=== PATIENT | female | born 1970 | race Caucasian/White ===

== ENCOUNTER → 2019-11-26 15:08 | Outpatient (BNVA) | payer OTHER, SELFPAY | PROVIDERS: Family Provider Family Medicine; Visit Provider Nurse Practitioner Family | DX: S99.922A Unspecified injury of left foot, initial encounter (principal); M77.32 Calcaneal spur, left foot; X58.XXXA Exposure to other specified factors, initial encounter | CPT/HCPCS: 73630 ==

== ENCOUNTER 2021-11-16 07:36 | Outpatient (CLI) | payer OTHER, SELFPAY ==
--- NOTE | 2021-11-16 07:49 | MM_ITS ---
WS: [id number] VIEWS: MLO and CC views both breasts. 3D digital tomosynthesis is also included in this exam. Comparison made with prior exam of 02/04/2013, 03/13/2016, 04/24/2019, Findings: There was no sign of mass, architectural distortion or suspicious calcification in either breast. Sc attered fibroglandular densities MM/[id number] Impression: BI-RADS: 2-Benign FOLLOW-UP: 1 Year Follow-up This mammogram was also analyzed by the Computer Aided Detection System R2 Imag e Demo Event Specialist.
== END 2021-11-16 07:37 | disposition home or self-care (01) ==
LOC: RAD 07:38
PROVIDERS: PCP Family Medicine; Visit Provider Family Medicine
DX: Z12.31 Encounter for screening mammogram for malignant neoplasm of breast (principal)
CPT/HCPCS: 77063; 77067

== ENCOUNTER → 2022-05-17 09:15 | Outpatient (BNVA) | payer OTHER, SELFPAY | PROVIDERS: PCP Family Medicine; Visit Provider Nurse Practitioner | DX: J02.9 Acute pharyngitis, unspecified (principal) | CPT/HCPCS: 87071; 87880 ==

== ENCOUNTER 2022-11-22 15:12 | Outpatient (CLI) | payer OTHER, SELFPAY ==
--- NOTE | 2022-11-22 15:24 | MM_ITS ---
WS: [id number] BILATERAL SCREENING DIGITAL TOMOSYNTHESIS MAMMOGRAM WITH CAD HISTORY: SCREENING COMPARISON: 11/16/2021, 04/24/2019 Bilateral CC and MLO views with tomosynthesis and synthetic mammography submitted. Computer aided det ection analyzed. Breast composition: There are scattered areas of fibroglandular density. No suspicious masses, microc alcifications or architectural distortion. MM/[id number] IMPRESSION: BI-RADS: 1-Negative FOLLOW UP: 1 Year Follow-up
== END 2022-11-22 15:13 | disposition home or self-care (01) ==
LOC: RAD 15:15
PROVIDERS: PCP Family Medicine; Visit Provider Family Medicine
DX: Z12.31 Encounter for screening mammogram for malignant neoplasm of breast (principal)
CPT/HCPCS: 77063; 77067

== ENCOUNTER 2024-05-19 08:16 | Outpatient (CLI) | payer SELFPAY ==
[2024-05-19 09:37] LABS: 25 Hydroxy Vitamin D 29 ng/mL (30-100)
== END 2024-05-19 08:17 | disposition home or self-care (01) ==
LOC: LAB 08:18
PROVIDERS: PCP Family Medicine; Visit Provider Dermatology
DX: Z13.9 Encounter for screening, unspecified (principal)
CPT/HCPCS: 36415

== ENCOUNTER 2024-06-30 07:45 | Outpatient (CLI) | payer OTHER, SELFPAY ==
--- NOTE | 2024-06-30 08:00 | MM_ITS ---
WS: [id number] BILATERAL 3D TOMOSYNTHESIS DIGITAL SCREENING MAMMOGRAPHY WITH CAD CLINICAL INFORMATION: screening for breast cancer HISTORY: Screening mammogram. No current complaints. COMPARISON: 2022 TECHNIQUE: Bilateral CC and MLO views. FINDINGS: Scattered fibroglandular densities bilaterally. No suspicious focal mass, asymmetry, calcifications, or architectural distortion. No evidence of malignancy. MM/MM scr tomosynthesis [id number] IMPRESSION: DENSITY: There are scattered areas of fibroglandular density. BI-RADS: 1 - Negative. FOLLOW UP: 1 Year Follow-up Recommend return to annual screening mammography.
== END 2024-06-30 07:46 | disposition home or self-care (01) ==
LOC: RAD 07:46
PROVIDERS: PCP Family Medicine; Visit Provider Family Medicine
DX: Z12.31 Encounter for screening mammogram for malignant neoplasm of breast (principal); R92.323 Mammographic fibroglandular density, bilateral breasts
CPT/HCPCS: 77063; 77067

== ENCOUNTER 2024-07-16 06:01 | Day surgery (SDC) | payer OTHER, SELFPAY ==
--- NOTE | 2024-07-16 05:42 | W.PM.OPSUD ---
Surgery/Procedure H&P Update DATE OF PROCEDURE: July 16, 2024 DATE H&P PERFORMED: 07/01/24 H&P UPDATE INFORMATION: I have reviewed H&P completed within last 30 days, I have examined patient prior to procedure, No changes to prior documentation and H&P is in [facility] on date indicated PLANNED PROCEDURE: Operation Date: 07/16/24 07:15 Proposed Procedures p Colonoscopy 24486, G0121, Z12.11(Not Applicable) - Nayan Beckford MD
[2024-07-16 06:22] VITALS: BP 134/78; PULSE 90; RESP 18; TEMP 36.9; O2SAT 95; BMI 30.2
[2024-07-16] MEDS: sodium chloride 0.9% 500 ML 15 ML IV (06:27)
[2024-07-16 06:33] LABS: OR HCG Qualitative Urine Negative (Negative)
--- NOTE | 2024-07-16 06:39 | P.ANESASSM_ITS ---
Pre-Anesthetic Assessment Height/Weight: Height 1.57 m Weight 74.843 kg Temp Pulse Resp BP Pulse Ox O2 Del Method 98.4 F 90 18 134/78 95 Room Air 07/16/24 06:22 07/16/24 06:22 07/16/24 06:22 07/16/24 06:22 07/16/24 06:22 07/16/24 06:22 Preop Diagnosis: screening Operation Date: 07/16/24 07:15 Proposed Procedures p Colonoscopy 60960, G0121, Z12.11(Not Applicable) - Nayan Beckford MD Familial anesthetic complications: none Was Beta Melanie taken within 24 hours: N/A Was Clonidine taken within 24 hours: N/A Last intake: Intake Last Liquid Date 07/15/24 Last Liquid Time 21:00 Last Solid Date 07/14/24 Last Solid Time 20:00 Social No alcohol and No tobacco Exam alert, oriented x 3, clear to auscultation bilaterally and regular rate & rhythm Airway Submandibular: within normal limits Cervical ROM: within normal limits Mallampati: Class II Dentition: full History/ROS No significant history except as noted and No significant complaints Pulmonary None reported CV/HEM None reported None reported Hepatic None reported GI None reported Metabolic None reported Musc/skel None reported Neuropsych None reported Anesthetic Plan ASA status: 2 Anesthesia: MAC Risk of > 500 ml blood loss (7ml/kg in children): No Medications/Allergies Home Medications ?Medication ?Instructions ?Recorded ?Confirmed ?Last Taken ?Type ferrous sulfate 325 mg (65 mg 325 mg PO DAILY 07/01/24 07/14/24 07/14/24 History iron) tablet (Flor-Time) multivitamin 1 tab PO DAILY 07/01/24 02/0 10/0207/14/24 History ondansetron 8 mg disintegrating 8 mg PO Q8H PRN nausea and 07/01/24 07/14/24 07/15/24 Rx tablet vomiting #3 tabs Allergies Allergy/AdvReac Type Severity Reaction Status Date / Time No Known Allergies Allergy Verified 07/01/24 13:54 Current Medications Generic Name Dose Route Start Last Admin Trade Name Freq PRN Reason Stop Dose Admin Sodium Chloride 500 mls @ 15 mls/hr 07/16/24 06:18 07/16/24 06:27 Sodium Chloride 0.9% IV 07/17/24 06:17 15 mls/hr .Q24H PRN Administration COLONOSCOPY FLUIDS PFSH Anesthesia Medical History Hormone replacement therapy (HRT) Perimenopausal vasomotor symptoms Anemia, iron deficiency reports she has been this way whole life Screening for colorectal cancer Surgical History History of tympanoplasty has had 3 ear surgeries total H/O tubal ligation Family History (Updated 07/01/24 @ 13:[address]) Father Non-Hodgkin lymphoma in adult Mother Bone cancer it was secondary;uncertain primary; Sister Clotting disorder DVT Arrhythmia pacemaker Family/Other Cancer maternal Aunt - pancreatic Social History Smoking and tobacco/nicotine status: never used tobacco/nicotine Alcohol intake: never Substance/Drug Use: never Household members: spouse Marital status: Number of children: 3 Highest education level completed: High School Graduate Current occupational status: employed 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
[2024-07-16 07:50] VITALS: BP 108/67; PULSE 71; RESP 18; TEMP 36.1; O2SAT 95
[2024-07-16 08:03] VITALS: BP 123/74; PULSE 65; RESP 16; O2SAT 97
--- NOTE | 2024-07-16 08:20 | ANE.PACU2 ---
Inpatient post-anesthesia follow up: Airway intact: Yes Vital signs: Temperature 97.0 F Pulse Rate 65 Respiratory Rate 16 Blood Pressure 123/74 Pulse Oximetry 97 Oxygen Delivery Me thod Room Air Oxygen Flow Rate Fraction of Inspir ed Oxygen Hydration adequate: Yes Nausea and vomiting: No Pain level: 1 Mental status: Baseline
== END 2024-07-16 08:20 | disposition home or self-care (01) ==
PROVIDERS: Anesthesiology; PCP Family Medicine; Visit Provider Surgery
PROC: 0DJD8ZZ Inspection of Lower Intestinal Tract, Via Natural or Artificial Opening Endoscopic (ICD-10-PCS; CPT 45378; principal; 2024-07-16 07:15)
DX: Z12.11 Encounter for screening for malignant neoplasm of colon (principal); D12.3 Benign neoplasm of transverse colon
CPT/HCPCS: 45380; 81025; 88305; J2704; J3490; J7040

== ENCOUNTER 2024-12-25 10:59 | Outpatient (CLI) | payer OTHER, SELFPAY ==
--- NOTE | 2024-12-25 12:00 | CT_ITS ---
WS: [id number] CT HEAD TECHNIQUE: Noncontrast CT of the head obtained from the skullbase to the vertex. CLINICAL INFORMATION: G44.53 - Primary thunderclap headache COMPARISON: None. DLP: 987.[address] scans at [facility] use at least one of these dose optimization techniques: automated exposure control; mA and/or kV adjustment per patient size (includes targeted exams where dose is matched to clinical indication); or iterative reconstruction. FINDINGS: No evidence of intracranial hemorrhage. Ventricular system and basal cisterns are patent. No extra-axial fluid collections. Calcified lesion along the LEFT anterior falx measuring approximately 1.2 x 1.2 x 1.3 cm AP x transverse x craniocaudal. This is most compatible with a benign meningioma. No visualized surrounding edema. Recommend follow-up with MRI without and with gadolinium enhancement for better anatomic detail. No other acute findings. Paranasal sinuses and mastoid air cells are well aerated. .Normal visualized soft tissues. CT/CT head wo con* [id number] IMPRESSION: 1. No evidence of intracranial hemorrhage 2. Calcified lesion along the LEFT anterior falx measuring approximately 1.2 x 1.2 x 1.3 cm AP x transverse x craniocaudal length likely represents benign me ningioma. No visualized surrounding edema. Mild localized mass effect on the LE FT parasagittal frontal lobe. Recommend further evaluation MRI of the head with out and with gadolinium enhancement for better anatomic detail and baseline nuvia luation 3. No other suspicious findings
== END 2024-12-25 11:00 | disposition home or self-care (01) ==
LOC: RAD 11:00
PROVIDERS: PCP Family Medicine; Visit Provider Family Medicine
DX: G44.53 Primary thunderclap headache (principal); G93.89 Other specified disorders of brain
CPT/HCPCS: 70450

== ENCOUNTER 2025-01-13 14:19 | Outpatient (CLI) | payer OTHER, SELFPAY ==
--- NOTE | 2025-01-13 14:30 | MR_ITS ---
WS: [id number] MRI HEAD WITH CONTRAST TECHNIQUE: Sagittal T1, T2 axial, T2 axial FLAIR, axial susceptibility weighted imaging, axial diffusion weighted images, and coronal T2 images were obtained. Pre and post-T1 axial and post T1 coronal images. ADC and FSPGR images. CLINICAL INFORMATION: thunderclap headache, new COMPARISON: CT 12/25/2024 FINDINGS: Enhancing extra-axial lesion along the LEFT parasagittal falx corresponds to the calcified lesion on the prior CT. Imaging characteristics compatible with a meningioma. Meningioma measures approximately 1.2 x 1.2 x 1.7 cm AP by transverse by craniocaudal. Mild associated mass effect on the surrounding brain parenchyma. No edema. No other abnormal foci of enhancement. Normal optic chiasm and pituitary infundibulum. Normal dural venous sinuses. No evidence of restricted diffusion to suggest acute ischemia. Ventricular system and basilar cisterns are patent. Mild small vessel changes. No significant parenchymal volume loss. Normal posterior fossa. Normal vascular flow voids at the skull base. Paranasal sinuses and mastoid air cells are well aerated. No hemosiderin. MR/MR head wo/w con [id number] IMPRESSION: 1. Enhancing meningioma LEFT frontal lobe along the falx as seen on the recent CT. No evidence of surrounding edema. Meningioma measures approximately1.2 x 1 .2 x 1.7 cm AP by transverse by craniocaudal. 2. No evidence of restricted diffusion to suggest acute ischemia. 3. Mild small vessel changes. No significant parenchymal volume loss. 4. No hemosiderin.
--- NOTE | 2025-01-13 15:15 | MR_ITS ---
WS: [id number] MRA HEAD TECHNIQUE: Axial 3-D TOF images obtained with axial images and axial, sagittal, and coronal 2-D reformatted images. CLINICAL INFORMATION: thunderclap headache, new COMPARISON: None. FINDINGS: Distal vertebrals are patent. Basilar artery is patent. Normal vascularity to the [employer] territory bilaterally. Both ICAs are patent at the skull base. Normal vascularity to the EMELY and MCA territories bilaterally. No evidence of proximal flow-limiting stenosis. MR/MR angio head wo con [id number] IMPRESSION: Normal intracranial MRA.
[2025-01-13] MEDS: gadobenate dimeglumine 20 mL vial IV (15:53)
== END 2025-01-13 14:20 | disposition home or self-care (01) ==
LOC: RAD 14:21
PROVIDERS: PCP Family Medicine; Visit Provider Family Medicine
DX: G44.53 Primary thunderclap headache (principal); D32.0 Benign neoplasm of cerebral meninges
CPT/HCPCS: 70544; 70553